=== PATIENT | male | born 1970 | race Caucasian/White ===

== ENCOUNTER 2023-12-24 15:52 | Emergency (ER) | payer OTHER, SELFPAY ==
[2023-12-24 16:02] VITALS: BP 155/97
[2023-12-24 16:23] LABS: % Basophils 0.1 % (0-2); % Immature Granulocytes 0.4 % (0-0.5); % Lymphocytes 26.9 % (20.5-51.1); % Monocytes 5.9 % (1.7-9.3); % Neutrophils 66.7 % (42.2-75.2); Absolute Monocytes 0.4 10^3/uL (0.1-0.6); Absolute Neutrophils 4.9 10^3/uL (1.4-6.5); Hematocrit 44.4 % (39.0-52.0); Hemoglobin 15.2 g/dL (13.0-18.0); Mean Corp Hgb Conc. 34.2 g/dL (33.0-37.0); Mean Corpuscular Volume 90.4 fL (80.0-94.0); Mean Platelet Volume 10.1 fL (7.4-10.4); Nucleated Red Blood Cells % 0 % (-); Platelet Count 136 10^3/uL (130-400); Red Blood Cell Count 4.91 10^6/uL (4.70-6.10); Red Cell Dist. Width 13.2 % (11.5-14.5); White Blood Cell Count 7.3 10^3/uL (4.8-10.8)
[2023-12-24 16:44] LABS: ALT (SGPT) 33 U/L (0-50); AST (SGOT) 42 U/L (17-59); Albumin 4.1 g/dl (3.5-5.0); Alkaline Phosphatase 64 U/L (38-126); Blood Urea Nitrogen 44 mg/dl (9-20); Calcium 9.6 mg/dl (8.4-10.2); Carbon Dioxide 31 mmol/L (22-30); Chloride 96 mmol/L (98-107); Glucose 128 mg/dl (70-99); Potassium 4.8 mmol/L (3.5-5.1); Sodium 135 mmol/L (135-145); Total Bilirubin 1.7 mg/dl (0.2-1.3); Total Protein 6.4 g/dl (6.3-8.2); eGFR > 60.00
[2023-12-24 16:45] LABS: Troponin I < 0.012 ng/ml
== END 2023-12-24 19:45 ==
LOC: EMR 15:52
PROVIDERS: EMERGENCY PHYSICIAN Student in an Organized Health Care Education/Training Program
DX: I49.9 Cardiac arrhythmia, unspecified (principal); Z53.21 Procedure and treatment not carried out due to patient leaving prior to being seen by health care provider
CPT/HCPCS: 80053; 84484; 85025; 93005

== ENCOUNTER 2025-11-04 20:05 | Emergency (ER) | payer OTHER, SELFPAY ==
[2025-11-04 20:12] VITALS: BP 132/79
[2025-11-04 20:30] LABS: Hematocrit 49.4 % (39.0-52.0); Hemoglobin 16.5 g/dL (13.0-18.0); Mean Corp Hgb Conc. 33.4 g/dL (33.0-37.0); Mean Corpuscular Volume 88.5 fL (80.0-94.0); Nucleated Red Blood Cells % 0 % (-); Platelet Count 146 10^3/uL (130-400); Red Cell Dist. Width 13.6 % (11.5-14.5)
[2025-11-04 20:42] LABS: INR 1.04; PT 13.8 Sec (11.4-14.6)
[2025-11-04 20:43] LABS: APTT 28.3 Sec (23.4-35.0)
[2025-11-04 20:53] LABS: ALT (SGPT) 24 U/L (0-50); AST (SGOT) 28 U/L (17-59); Albumin 4.7 g/dl (3.5-5.0); Alkaline Phosphatase 53 U/L (38-126); Blood Urea Nitrogen 36 mg/dl (9-20); Calcium 9.5 mg/dl (8.4-10.2); Carbon Dioxide 27 mmol/L (22-30); Chloride 101 mmol/L (98-107); Glucose 108 mg/dl (70-99); Potassium 4.2 mmol/L (3.5-5.1); Sodium 134 mmol/L (135-145); Total Protein 7.5 g/dl (6.3-8.2); eGFR > 60.00
[2025-11-04 21:03] LABS: Troponin I < 0.012 ng/ml
[2025-11-04 22:12] VITALS: BP 121/71
[2025-11-04 22:23] VITALS: BMI 32.8
[2025-11-04] MEDS: NSS 1000 IV (23:40)
--- NOTE | 2025-11-04 23:40 | ED.GENMED ---
History of Present Illness
General
Chief Complaint: Cardiac Symptoms
Time Seen by Provider: 11/04/25 22:52
History of Present Illness
History of Present Illness:
55-year-old male with prior history of bicuspid aortic valve and aortic aneurysm status post repair at [facility] in 2021 presenting to the emergency department for concern of A-fib. Patient reports after his surgery he was placed on
metoprolol, had been on 25 mg twice a day. Patient reports that he has testicular issues, so is on testosterone replacement therapy. More recently, since July, has felt that his blood pressure was running low, possibly from the hormone and
the beta-jossue. In discussion with his primary and his drum worker, he went down to 12.5 mg twice daily. He reports about a month ago, again had an episode of low blood pressure, however feels that it was precipitated by taking Cialis. He
reports that he went to [facility], had an echo and has been placed on a Holter monitor. He feels like his heart rate has been higher within the past month. However about 30 minutes prior to arrival, felt palpitations upon standing and
his watch was reading A-fib which prompted him to come to the hospital. Denies any chest pain. Does report stress and poor oral hydration. Denies additional acute medical complaints
Past History
Past History
ED Past Medical History: Valvular disease (bicuspid aortic valve s/p replacement)
ED Past Surgical History: Cardiac (aortic valve replacement and aortic aneurysm repair 07/12/2022 [facility])
Social History
Tobacco: Non-smoker
Alcohol: None
Drug: None
Personal: Other
Living: with family
Employment: Employed
Family History
Family History: Other
Phy Exam
Physical Exam
Physical Exam:
General: Well-appearing, no clinical signs of dehydration, nontoxic and in no acute distress
HEENT: protecting airway
Neck: appears supple
CV: Irregular irregular rhythm, normal heart rate
Resp: No accessory muscle use, no increased work of breathing, lungs clear to auscultation bilaterally
Abd: No distention
Extremities: No deformities, no swelling
Neuro: alert, no focal neurologic deficit
: deferred
Rectal: deferred
Psych: Normal affect
Skin: Intact
Scores
[id number] Score for Afib Stroke Risk
Age in Years (65=0, 65-74=1, >/=75=2): <65
Sex (Female=+1): Male
Congestive Heart Failure History (Yes=+1): No
Hypertension History (Yes=+1): No
Stroke/TIA/Thromboembolism History (Yes=+2): No
Vascular Disease History (Yes=+1): Yes
Diabetes Mellitus (Yes=+1): No
Score: 1
Anticoagulation Recommendations: Consider anticoagulation (as validated in nonvalvular fib)
Course
Orders/Labs/Results
Orders:
Orders
11/04/25 20:06
ECG [Electrocardiogram (*1)] Urgent
Reason for Study: Atrial Fibrillation
11/04/25 20:07
EKG- Treatment ONCE
11/04/25 20:18
Complete Blood Count/With Diff Urgent
Comprehensive Metabolic Panel Urgent
PT/INR [Prothrombin Time] Urgent
Is patient on Coumadin/Warfarin?: No
Comment: [email or web address]
PTT Urgent
Troponin I Urgent
11/04/25 23:28
0.9% Sodium Chloride 1000 ml [Nss] 1,000 ml IV BOLUS
11/04/25 23:30
Diltiazem 125 mg/125 ml Nss [Cardizem] 125 mg in 125 ml .ROUTE .STK-MED
Diltiazem 125 mg/125 ml Nss [Cardizem] 125 mg in 125 ml IV PER PROTOCOL
Currently infusing. Continue current dose and titrate:: Yes
Titrate to keep:: Heart rate 80-100 bpm
Titrate by mg/hr:: 5 mg/hr
Frequency of titrations (minutes):: 15
Maximum dose in mg/hr:: 15
Diltiazem HCl [Cardizem] 25 mg .ROUTE .STK-MED ONE
11/05/25 00:05
CR Chest - 2 Views Urgent
Reason For Exam: afib
11/05/25 01:57
Electrocardiogram (*1) Urgent
Reason for Study: Atrial Fibrillation
EKG- Treatment ONCE
Apixaban [Eliquis] 5 mg PO ONCE ONE
Abnormal Lab Results
11/04/25
20:18
Sodium 134 L mmol/L
(135-145)
BUN 36 H mg/dl
(9-20)
Glucose 108 H mg/dl
(70-99)
11/04/25 20:18
11/04/25 20:18
Vital Signs
Initial and Last Documented VS:
Initial Vital Signs
Temp Pulse Resp BP Pulse Ox
97.6 F 81 18 132/79 96
11/04/25 20:12 11/04/25 20:12 11/04/25 20:12 11/04/25 20:12 11/04/25 20:12
Last Documented Vital Signs
Temp Pulse Resp BP Pulse Ox
97.6 F 76 24 122/75 95
11/04/25 20:12 11/05/25 01:15 11/05/25 01:00 11/05/25 01:00 11/05/25 01:30
MDM/Problems Addressed
MDM/Problems Addressed:
55-year-old male with history of prior aortic bicuspid valve repair and aortic aneurysmal repair on metoprolol presenting for concern of irregular heart rhythm. Vital signs on arrival significant for mild tachycardia.
On exam, patient is resting comfortably, no acute distress or discomfort. EKG obtained on arrival, consistent with atrial fibrillation. Patient however there is otherwise comfortable in appearance, hemodynamically stable. No signs of volume
overload or concern for heart failure. Rate is relatively well-controlled, low 90s to low 100s. Suspect new onset A-fib. [id number] is a 1, so at this time would recommend anticoagulation. Do not feel at this time the patient is a
cardioversion candidate. Does note that symptoms started about 30 minutes prior to arrival, however has been having on and off symptoms for the past month include elevated heart rates, which may be secondary to metoprolol adjustment, however cannot
say for certain that patient has not been having paroxysmal A-fib. Screening laboratory analysis unremarkable. Will obtain chest x-ray imaging. Will start on IV fluids and diltiazem. Patient would prefer not to stay in the hospital, which given
hemodynamic stability, feel reasonable, notes that he will follow-up with his drum worker.
02:20 - Chest x-ray without signs of volume overload. Heart rate remains stable. At this time feel stable for discharge, however advise calling drum worker tomorrow for interval follow-up. In the meantime, will increase metoprolol to 25 mg
daily. Will start Eliquis. Return precautions discussed and patient verbalized understanding
*Pulse Oximetry
SaO2: 96
Oxygen Mode of Delivery: Room air
Patient hypoxic: no
*EKG
Interpreted by ED Provider?: Yes
EKG Intrepretation Date: 11/04/25
EKG Intrepretation Time: 23:48
Interpretation: abnormal
Comparison EKG: changes noted (12/24/23)
Heart Rate: 113
Rate: tachycardiac
Rhythm: a-fib
[place]: normal axis
QRS Pattern: normal QRS
Ischemia: no ischemia
*Critical Care Note
Total Time (30-74mins, 75-104mins- exclusive of procedures): Not Applicable
ED Attending Note
-
Portions of this chart may have been created with voice recognition software.� Occasional wrong word or��sound alike� substitutions may have occurred due to the inherent limitations of voice recognition software.
Discharge Plan
Departure
Prescriptions:
No Action
clonazepam 0.5 mg tablet
0.5 mg PO DAILY@1200
Patient Comments:
11/16/2022: last filled 10/18/22, 30 tabs for 30 days from [facility]
clonazepam 1 mg tablet
1 mg PO [facility]
Patient Comments:
11/16/2022: last filled 10/18/22, 30 tabs for 30 days from [facility]
mirtazapine 15 mg tablet
15 mg PO HS
finasteride 5 mg tablet
5 mg PO HS
escitalopram oxalate 20 mg tablet
20 mg PO HS
desvenlafaxine succinate 100 mg tablet extended release 24 hr
25 mg PO DAILY
aspirin 81 mg Tablet
81 mg PO DAILY
metoprolol tartrate 25 mg tablet
12.5 mg PO BID
atorvastatin 20 mg Tablet
20 mg PO HS
Referrals:
Abdoul Alexander MD [Family Provider, Family Practice]
Interventions
Interventions:
*Risk Screen - Suicide Last Done: 11/04/25 20:14
*General Assessment Last Done: 11/04/25 22:23
*Neglect/Abuse Screening Last Done: 11/04/25 20:14
*ED COVID-19 Vaccine History Last Done: 11/04/25 22:23
*ED Influenza Vaccine History Last Done: 11/04/25 22:23
ED- Pulmonary Assessment Last Done: 11/04/25 22:24
ED- Cardiac Assessment Last Done: 11/04/25 22:24
Discharge Date and Time
Print Language: MOSOT[place]
[2025-11-04] MEDS: CARDIZEM 125 IV (23:41)
[2025-11-05] VITALS: BP 130/73
[2025-11-05 01:00] VITALS: BP 122/75
--- NOTE | 2025-11-05 01:30 | EDRN ---
Dr. Washington in re-assessing patient, patient is resting comfortably
[2025-11-05 02:00] VITALS: BP 129/74
[2025-11-05] MEDS: ELIQUIS 5 MG PO (02:08)
== END 2025-11-05 02:44 | disposition home or self-care (01) ==
LOC: EMR 20:05
PROVIDERS: Emergency Medicine; EMERGENCY PHYSICIAN Student in an Organized Health Care Education/Training Program; FAMILY PHYSICIAN Family Medicine
DX: I48.91 Unspecified atrial fibrillation (principal); Z79.01 Long term (current) use of anticoagulants; Z79.890 Hormone replacement therapy; Z79.899 Other long term (current) drug therapy; Z86.79 Personal history of other diseases of the circulatory system; Z95.2 Presence of prosthetic heart valve
CPT/HCPCS: 99283; 71046; 80053; 84484; 85025; 85610; 85730; 93005